=== PATIENT | female | born 1965 | race Caucasian/White ===

== ENCOUNTER → 2023-02-28 | Emergency (ER) | payer OTHER, BC ==
[~2023-02-28] VITALS: Ht 154.9 cm; Wt 80.2 kg
[2023-02-28 10:53] VITALS: TEMP 96.2
[2023-02-28 12:16] VITALS: BP 117/85; PULSE 83; RESP 18; O2SAT 98
--- NOTE | 2023-02-28 13:18 | NUR ---
I AGREE WITH THE ASSESSMENT PER Donn MORENO LVN
== END | disposition home or self-care (01) ==
LOC: ER 10:40
DX: M54.2 Cervicalgia (principal); M25.552 Pain in left hip; M25.562 Pain in left knee; V98.8XXA Other specified transport accidents, initial encounter; Y93.89 Activity, other specified; Y92.89 Other specified places as the place of occurrence of the external cause; Y99.8 Other external cause status
CPT/HCPCS: 73502; 73560; 99284